=== PATIENT | female | born 1945 | race Caucasian/White ===

== ENCOUNTER 2017-01-09 10:26 | Emergency (ER) | payer MEDICARE, OTHER ==
[~2017-01-09] VITALS: Ht 162.6 cm; Wt 101.0 kg
[~2017-01-09 10:26] MED LIST: ENAL2.5T; ESOM40CA; METF500T4 PO; REPA1TAB14 PO
[2017-01-09 10:28] VITALS: Ht 162.6 cm; Wt 101.0 kg
[2017-01-09] MEDS ORDERED: ONDANSETRON 4 MG INJ IV STA (11:04)
[2017-01-09] MEDS ORDERED: SOD CHLORIDE 0.9% 1,000 ML IV STA (11:04)
[2017-01-09] MEDS ORDERED: OLME20TA20 PO (11:19)
--- NOTE | 2017-01-09 11:19 | ERA ---
ER Documentation Chief Complaint Date/Time DATE: 01/09/17 TIME: 11:16 Chief Complaint bloated, diarrhea & vomitting x1wk, had knee surgery 2mths ago HPI This is a 71-year-old female who presents the emergency room with one half weeks of nausea vomiting and diarrhea. The patient does describe prior abdominal surgical history including appendectomy. She had surgery to her bilateral knees to months ago and takes tramadol. She states that for the last week and half she has not been able to keep anything down. She was at an ER 2 days ago with negative CT imaging of the abdomen and pelvis. She states persistent vomiting. She denies any fevers, chills, antibiotics, travel. ROS All systems reviewed and are negative except as per history of present illness. Medications Home Meds Reported Medications Insulin Glargine* (Lantus*) 100 Unit/Ml Soln, 50 UNIT SC QHS, #1 VIAL 01/09/17 Canagliflozin (Invokana) 300 Mg Tablet, 300 MG PO DAILY, TAB 01/09/17 Linagliptin (TRADJENTA) 5 Mg Tablet, 5 MG PO DAILY, TAB 01/09/17 Glipizide* (Glipizide*) 10 Mg Tablet, 10 MG PO BID, TAB 01/09/17 Metoprolol Succinate* (Toprol XL*) 25 Mg Tab.sr.24h, 25 MG PO DAILY, #30 TAB 01/09/17 Olmesartan Medoxomil (Benicar) 20 Mg Tablet, 20 MG PO DAILY, #30 TAB 01/09/17 Esomeprazole Mag Trihydrate (Nexium) 40 Mg Capsule. 04/15/10 Discontinued Reported Medications Repaglinide* (Prandin*) 1 Mg Tablet, 1 MG PO DAILY 03/23/12 Metformin* (Glucophage*) 500 Mg Tab, 500 MG PO BID 03/23/12 Enalapril Maleate* (Enalapril Maleate*) 2.5 Mg Tablet 04/15/10 Allergies Allergies: Coded Allergies: aspirin (Verified Allergy, Mild, 01/09/17) PMhx/Soc History of Surgery: Yes (HYSTERECTOMY,BILAT KNEE REPLACEMENT,LAP ARETHA) Anesthesia Reaction: No Hx Neurological Disorder: No Hx Respiratory Disorders: No Hx Cardiac Disorders: Yes (HTN) Hx Psychiatric Problems: No Hx Miscellaneous Medical Probl: No Hx Alcohol Use: No Hx Substance Use: No Hx Tobacco Use: No Smoking Status: Never smoker FmHx Family History: No diabetes Physical Exam Vitals Vital Signs Date Time Temp Pulse Resp B/P Pulse Ox O2 Delivery O2 Flow Rate FiO2 01/09/17 10:28 98.3 63 20 200/95 97 Physical Exam General: Well developed, well nourished, no acute distress Head: Normocephalic, atraumatic Eyes: Pupils equally reactive, EOM intact ENT: Moist mucous membranes Neck: Supple, no lymphadenopathy Respiratory: Lungs clear bilaterally, no distress Cardiovascular: RRR, no murmurs, rubs, or gallops Abdominal: Soft, non-tender, non-distended, no peritoneal signs, no pulsatile mass : Deferred MSK: No edema, no unilateral swelling, 5/5 strength Neurologic: Alert and oriented, moving all extremities, normal speech, no focal weakness, no cerebellar signs Skin: No rash Psych: Normal mood Result Diagram: 01/09/17 1146 01/09/17 1146 Results 24 hrs Laboratory Tests Test 01/09/17 11:25 01/09/17 11:46 Urine Color STRAW Urine Clarity CLEAR Urine pH 5.0 Urine Specific [place] 1.017 Urine Ketones TRACEmg/dL Urine Nitrite NEGATIVEmg/dL Urine Bilirubin NEGATIVEmg/dL Urine Urobilinogen NEGATIVEmg/dL Urine Leukocyte Esterase NEGATIVELeu/ul Urine Microscopic RBC 0/HPF Urine Microscopic WBC 1/HPF Urine Hemoglobin 1+mg/dL Urine Glucose 3+mg/dL Urine Total Protein NEGATIVEmg/dl White Blood Count 10.010^3/ul Red Blood Count 4.0410^6/ul Hemoglobin 11.4g/dl Hematocrit 35.2% Mean Corpuscular Volume 87.1fl Mean Corpuscular Hemoglobin 28.2pg Mean Corpuscular Hemoglobin Concent 32.4g/dl Red Cell Distribution Width 13.1% Platelet Count 67212^3/UL Mean Platelet Volume 9.9fl Neutrophils % 73.3% Lymphocytes % 18.9% Monocytes % 4.7% Eosinophils % 2.2% Basophils % 0.6% Nucleated Red Blood Cells % 0.0/100WBC Neutrophils # 7.310^3/ul Lymphocytes # 1.910^3/ul Monocytes # 0.510^3/ul Eosinophils # 0.210^3/ul Basophils # 0.110^3/ul Nucleated Red Blood Cells # 0.010^3/ul Sodium Level 142mmol/L Potassium Level 3.7mmol/L Chloride Level 106mmol/L Carbon Dioxide Level 28mmol/L Anion Gap 12 Blood Urea Nitrogen 14mg/dl Creatinine 0.58mg/dl Glucose Level 115mg/dl Calcium Level 10.0mg/dl Total Bilirubin 0.2mg/dl Direct Bilirubin 0.00mg/dl Indirect Bilirubin 0.2mg/dl Aspartate Amino Transf (AST/SGOT) 19IU/L Alanine Aminotransferase (ALT/SGPT) 39IU/L Alkaline Phosphatase 124IU/L Total Protein 7.4g/dl Albumin 4.2g/dl Globulin 3.20g/dl Albumin/Globulin Ratio 1.31 Lipase 36U/L Current Medications Medications (Trade) Dose Ordered Sig/[place] Route PRN Reason Start Time Stop Time Status Last Admin Dose Admin Sodium Chloride (NS) 1,000 ml @ 1,000 mls/hr Q1H STAT IV 01/09/17 11:04 01/09/17 12:03 DC 01/09/17 12:18 Ondansetron HCl (Zofran Inj) 4 mg ONCE STAT IV 01/09/17 11:04 01/09/17 11:06 DC 01/09/17 12:18 Morphine Sulfate (morphine) 4 mg ONCE STAT IV 01/09/17 12:03 01/09/17 12:04 DC 01/09/17 12:19 Procedures/MDM EKG, MONITORS, & DIAGNOSTIC IMAGING: X-ray abdomen acute series: No obstructive process per radiology read LAB INTERPRETATION: No leukocytosis or hepatobiliary obstruction, no urinary tract infection, slight ketonuria MEDICAL DECISION MAKING: The patient presents with nausea vomiting diarrhea and abdominal bloating. The patient is a very benign abdominal examination with low clinical concern for acute intra-abdominal process or obstruction. She had negative CT imaging 2 days ago. I do not feel that repeat CT imaging of the abdomen and pelvis is necessary. Screening for obstruction with a KUB and acute abdominal series would be reasonable. The patient is concerned because her primary care physician is not here and she cannot follow-up as an outpatient. She has been unable to take her blood pressure medications or other medications including pain medication. This is most likely a viral process and the patient would benefit from laboratory screening, IV fluids and reassessment. ER COURSE: The patient's laboratory testing is unrevealing. She was given IV fluids, pain medication and nausea medication. At this time I discussed inpatient versus outpatient management. Again, this is most likely a viral process, probiotics may be reasonable. No indication for antibiotics. The patient prefers discharge home and I believe this is reasonable. I did discuss return precautions including inability to tolerate oral intake. I kept the patient and/or family informed of laboratory and diagnostic imaging results throughout the emergency room course. DISPOSITION PLAN: We discussed follow up with the patient's primary care doctor within 24 to 48 hours as needed. We also discussed return to the emergency room for worsening symptoms or worsening condition. Outpatient referral: [None required] [facility] Diagnosis: Primary Impression: Nausea and vomiting Qualified Code: R11.2 - Non-intractable vomiting with nausea, unspecified vomiting type Additional Impressions: Diarrhea Qualified Code: R19.7 - Diarrhea, unspecified type Mild dehydration Condition: Good EDEN MEADOWS MD Jan 09, 2017 11:19
[2017-01-09] MEDS ORDERED: METO-335 PO (11:22)
[2017-01-09] MEDS ORDERED: GLIP-95 PO (11:22)
[2017-01-09] MEDS ORDERED: CANA300T PO (11:23)
[2017-01-09] MEDS ORDERED: LINA5TAB PO (11:23)
[2017-01-09] MEDS ORDERED: LANT3I SC (11:24)
[2017-01-09 11:42] LABS: ADD UMIC YES; UR ASCORBIC ACID NEGATIVE (NEGATIVE); UR BILIRUBIN (Dip) NEGATIVE (NEGATIVE); UR BLOOD (Dip) 1+ mg/dL (NEGATIVE); UR CLARITY CLEAR (CLEAR); UR COLOR STRAW (YELLOW); UR GLUCOSE (Dip) 3+ mg/dL (NEGATIVE); UR KETONES (Dip) TRACE mg/dL (NEGATIVE); UR LEUKOCYTE ESTERASE (Dip) NEGATIVE Leu/ul (NEGATIVE); UR NITRITE (Dip) NEGATIVE (NEGATIVE); UR RBC 0 /HPF (0-5); UR SPECIFIC GRAVITY (Dip) 1.017 (1.003-1.030); UR TOTAL PROTEIN (Dip) NEGATIVE (NEGATIVE); UR UROBILINOGEN (Dip) NEGATIVE (NEGATIVE)
[2017-01-09] MEDS ORDERED: morphine 4 MG/ML VIAL IV STA (12:03)
[2017-01-09 12:14] LABS: BASOPHIL # 0.1 10^3/ul (0.0-0.1); BASOPHILS % 0.6 % (0.0-2.0); EOSINOPHILS # 0.2 10^3/ul (0.0-0.5); EOSINOPHILS % 2.2 % (0.0-7.0); HEMATOCRIT 35.2 % (37.0-47.0); HEMOGLOBIN 11.4 g/dl (12.0-16.0); LYMPHOCYTES # 1.9 10^3/ul (0.8-2.9); LYMPHOCYTES % 18.9 % (15.0-51.0); MEAN CORPUSCULAR HEMOGLOBIN 28.2 pg (29.0-33.0); MEAN CORPUSCULAR HGB CONC 32.4 g/dl (32.0-37.0); MEAN CORPUSCULAR VOLUME 87.1 fl (82.0-101.0); MEAN PLATELET VOLUME 9.9 fl (7.4-10.4); MONOCYTE # 0.5 10^3/ul (0.3-0.9); MONOCYTES % 4.7 % (0.0-11.0); NEUTROPHIL # 7.3 10^3/ul (1.6-7.5); NEUTROPHILS % 73.3 % (39.0-77.0); PLATELET COUNT 284 10^3/UL (140-415); RED BLOOD COUNT 4.04 10^6/ul (4.20-5.40); RED CELL DISTRIBUTION WIDTH 13.1 % (11.5-14.5)
[2017-01-09 12:34] LABS: ALBUMIN 4.2 g/dl (3.3-4.9); ALBUMIN/GLOBULIN RATIO 1.31; BILIRUBIN,INDIRECT 0.2 mg/dl (0-1.1); BILIRUBIN,TOTAL 0.2 mg/dl (0.2-1.3); CREATININE 0.58 mg/dl (0.44-1.00); POTASSIUM 3.7 mmol/L (3.5-5.1); TOTAL PROTEIN 7.4 g/dl (6.1-8.1)
--- NOTE | 2017-01-09 13:08 | RADRPT ---
PROCEDURE: XR Abdomen. CLINICAL INDICATION: Abdomen pain. TECHNIQUE: Two views. AP supine and AP left lateral decubitus. COMPARISON: None. FINDINGS: There is no free air. The bowel gas pattern is normal with no evidence of obstruction. Surgical clips are present in the right upper quadrant of the abdomen. There are no abnormal calcifications overlying the urinary tracts. There are degenerative changes of the spine. IMPRESSION: 1. No evidence of obstruction. 2. Prior right upper quadrant abdomen surgery. 3. Degenerative changes of the spine. RPTAT: QQ .Larry Pedraza MD, MD Date Time Electronically viewed and signed by .Larry Pedraza MD, MD on 01/09/2017 13:08 .R/
--- NOTE | 2017-01-09 13:08 | RADRPT ---
PROCEDURE: XR Chest. CLINICAL INDICATION: Abdominal pain.. TECHNIQUE: Single frontal view. COMPARISON: None. FINDINGS: The lungs are clear. The heart size is normal. There is no pleural effusion. There is no pneumothorax. IMPRESSION: 1. Normal chest radiograph. RPTAT: QQ .Larry Pedraza MD, Date Time Electronically viewed and signed by .Larry Pedraza MD, on 01/09/2017 13:08 .R/
[2017-01-09 13:43] VITALS: BP 147/66; PULSE 79; RESP 17
== END 2017-01-09 13:47 | disposition home or self-care (01) ==
LOC: E/R 10:26
DX: E86.0 Dehydration (principal); I10 Essential (primary) hypertension; E11.9 Type 2 diabetes mellitus without complications; Z79.4 Long term (current) use of insulin; Z79.84 Long term (current) use of oral hypoglycemic drugs; Z96.653 Presence of artificial knee joint, bilateral
CPT/HCPCS: 36415; 71010; 74010; 80053; 81001; 83690; 85025; 96374; 96375; 99284; J2270; J2405; J7030